=== PATIENT | female | born 1975 ===

== ENCOUNTER 2018-02-22 07:00 | Day surgery (SDC) | payer OTHER ==
[2018-02-22] MEDS ORDERED: COLACE100 MG PO (13:59)
[2018-02-22] MEDS ORDERED: PERCOCET 5-3251 EACH PO (13:59)
== END 2018-02-22 16:40 | disposition home or self-care (01) ==
LOC: CIR.AMB 07:00
DX: K64.8 Other hemorrhoids (principal)